=== PATIENT | male | born 1955 | race Two or more races ===

== ENCOUNTER 2018-09-05 15:30 | Outpatient (CLI) | payer OTHER | END 2018-09-05 15:44 | disposition home or self-care (01) | LOC: RAD 15:30 | DX: M54.5 Low back pain (principal) ==

== ENCOUNTER 2020-01-13 09:06 | Emergency (ER) | payer OTHER ==
[~2020-01-13] VITALS: Ht 177.8 cm; Wt 97.5 kg
[2020-01-13] MEDS ORDERED: NORVASC2.5 M1 (09:37)
[2020-01-13] MEDS ORDERED: LIPITOR20 MG (09:37)
[2020-01-13] MEDS ORDERED: COZAAR50 MG (09:37)
== END 2020-01-13 13:17 | disposition home or self-care (01) ==
LOC: ER 09:06
DX: B34.9 Viral infection, unspecified (principal); R00.2 Palpitations; Z20.828 Contact with and (suspected) exposure to other viral communicable diseases

== ENCOUNTER 2020-07-21 11:51 | Outpatient (CLI) | payer OTHER ==
[~2020-07-21 11:51] MED LIST: COZAAR50 MG; LIPITOR20 MG; NORVASC2.5 M1
== END 2020-07-21 11:57 | disposition home or self-care (01) ==
LOC: RAD 11:51
PROVIDERS: ATTEND Physical Medicine & Rehabilitation
DX: M75.31 Calcific tendinitis of right shoulder (principal)

== ENCOUNTER 2020-07-29 14:14 | Outpatient (CLI) | payer OTHER | END 2020-07-29 15:09 | disposition home or self-care (01) | LOC: SONOGRAMA 14:14 → MAMO-SONO 14:15 → SONOGRAMA 15:09 | PROVIDERS: ATTEND Physical Medicine & Rehabilitation | DX: M25.511 Pain in right shoulder (principal); M75.111 Incomplete rotator cuff tear or rupture of right shoulder, not specified as traumatic ==

== ENCOUNTER 2022-04-21 07:28 | Outpatient (CLI) | payer OTHER | END 2022-04-21 07:39 | disposition home or self-care (01) | LOC: TOM 07:28 | PROVIDERS: ATTEND Internal Medicine Cardiovascular Disease | DX: G45.9 Transient cerebral ischemic attack, unspecified (principal); I70.0 Atherosclerosis of aorta; I67.89 Other cerebrovascular disease; I67.9 Cerebrovascular disease, unspecified | CPT/HCPCS: 70470; 70492; Q9965; 70498 ==

== ENCOUNTER 2023-05-16 07:40 | Outpatient (CLI) | payer OTHER | END 2023-05-16 07:46 | disposition home or self-care (01) | LOC: SONOGRAMA 07:40 | PROVIDERS: ATTEND Internal Medicine Gastroenterology | DX: R10.13 Epigastric pain (principal) ==

== ENCOUNTER 2023-12-06 08:55 | Outpatient (CLI) | payer OTHER | END 2023-12-06 09:02 | disposition home or self-care (01) | LOC: RAD 08:55 | PROVIDERS: ATTEND Physical Medicine & Rehabilitation | DX: M54.2 Cervicalgia (principal) ==

== ENCOUNTER 2024-05-07 09:04 | Outpatient (CLI) | payer OTHER | END 2024-05-07 09:21 | disposition home or self-care (01) | LOC: RAD 09:04 | PROVIDERS: ATTEND Internal Medicine | DX: I10 Essential (primary) hypertension (principal); E04.9 Nontoxic goiter, unspecified ==

== ENCOUNTER → 2024-05-23 | Outpatient (CLI) | payer OTHER | END | disposition home or self-care (01) | LOC: NUCLEAR 11:08 | PROVIDERS: ATTEND Internal Medicine | DX: M81.0 Age-related osteoporosis without current pathological fracture (principal) ==

== ENCOUNTER 2025-04-18 11:00 | Day surgery (SDC) | payer OTHER ==
[2025-04-10 08:45] LABS: BASO % 0.6 % (0.1-1.2); EOS # 0.12 (0.04-0.54); EOS % 1.9 % (0.7-7.0); LYMPH # 1.47 (1.18-3.74); LYMPH % 23.9 % (19.3-53.1); MEAN PLATELET VOLUME 9.10 fl (9.4-12.4); MONO # 0.46 (0.24-0.82); MONO % 7.5 % (4.7-12.5); NEUT # 4.06 (1.56-6.13); NEUT % 65.9 % (34.0-71.1); RED CELL DISTRIBUTION WIDTH 12.4 % (11.6-14.4)
[2025-04-10 09:08] LABS: URINE APPEARANCE Clear; URINE BILIRRUBIN Negative (NEGATIVE); URINE BLOOD Negative; URINE COLOR Yellow; URINE GLUCOSE Negative (NEGATIVE); URINE KETONE Negative (NEGATIVE); URINE LEUKOCYTE Negative; URINE NITRATE Negative; URINE PROTEIN Negative (NEGATIVE); URINE UROBILINOGEN 0.2 E.U./dl
[2025-04-10 09:15] LABS: URINE EPITHELIAL CELLS 2.2 uL (0.0-38.8); URINE RBC 7.1 uL (0.0-20.8); URINE WBC 1.2 uL (0.0-23.2)
[2025-04-10 09:16] LABS: URINE BACTERIA 3.5 uL (0.0-1933); URINE CAST 0.14 uL (0.0-1.40)
[2025-04-10 09:23] LABS: INR 1.04
[2025-04-10 09:25] LABS: BUN CREA RATIO 17.0 (7.0-25.0); CREATININE SERUM 1.41 mg/dL (0.70-1.30); GFR 49.69; GLUCOSE FASTING 98.0 mg/dL (65-100); OSMOLALITY SERUM 291.0 MOSM/KG (275-295)
[~2025-04-18] VITALS: Ht 30.5 cm; Wt 5.0 kg
[~2025-04-18 11:00] MED LIST changes: +ASA81 MG PO; +BUSPIRONE HCL7.5 MG PO; +MOUNJARO7.5 MG/0.5 SQ; +PEPCID AC20 MG PO; +TOPROL XL25 M1 PO; +TRAZODONE HCL100 MG PO; +WIXELA 100-501 EACH IH
[2025-04-18] MEDS ORDERED: CEFAZOLIN SODIUM 1,000 MG VIAL ONE (11:58)
[2025-04-18] MEDS ORDERED: BUPIVACAINE HCL/MPF 0.5% 30ML VIAL ONE (12:18)
[2025-04-18] MEDS ORDERED: KETOROLAC TROMETHAMINE 30 MG VIAL ONE (12:18)
[2025-04-18] MEDS ORDERED: DEXAMETHASONE SODIUM PHOSPHATE 4 MG/ML VIAL ONE (12:55)
[2025-04-18] MEDS ORDERED: TRAMADOL HCL50 MG PO (14:57)
[2025-04-18] MEDS ORDERED: KETO10TA2 PO (14:57)
[2025-04-18] MEDS ORDERED: GABAPENTIN100 M2 PO (14:57)
[2025-04-18] MEDS ORDERED: MIRALAX17 GM PO (14:57)
[2025-04-18] MEDS ORDERED: TYLENOL ARTHRI650 MG PO (14:57)
== END 2025-04-18 18:15 | disposition home or self-care (01) ==
LOC: CIR.AMB 11:00 → SURG 11:00 → O/R 11:00 → SURG 14:45 → O/R 18:15 → CIR.AMB 18:15
PROVIDERS: ATTEND Surgery
DX: K43.0 Incisional hernia with obstruction, without gangrene (principal)
CPT/HCPCS: 49596; C1781